=== PATIENT | female | born 2000 | race Caucasian/White ===

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

== ENCOUNTER → 2022-11-29 | Outpatient (REF) | payer BC | LOC: M LAB REF 10:11 | PROVIDERS: ATTEND Student in an Organized Health Care Education/Training Program | DX: J02.9 Acute pharyngitis, unspecified (principal) ==

== ENCOUNTER → 2023-02-21 | Outpatient (REF) | payer BC ==
[2023-02-21 15:32] LABS: BASO % 0.3 % (0.0-1.0); EOS # 0.1 10^3/uL (0.0-0.5); EOS % 0.4 % (0.0-3.0); HEMATOCRIT 42.6 % (36.0-47.0); HEMOGLOBIN 13.5 g/dl (12.0-15.5); LYMPH # 2.5 10^3/uL (1.5-5.0); LYMPH % 22.6 % (24.0-44.0); MEAN CORPUSCULAR HEMOGLOBIN 27.5 pg (27.0-33.0); MEAN CORPUSCULAR HGB CONC 31.7 g/dl (32.0-36.5); MEAN CORPUSCULAR VOLUME 86.8 fl (80.0-96.0); MONO # 0.7 10^3/uL (0.0-0.8); NEUTROPHILS # 7.9 10^3/uL (1.5-8.5); NEUTROPHILS % 70.4 % (36.0-66.0); PLATELET COUNT, AUTOMATED 312 10^3/uL (150-450); RED BLOOD COUNT 4.91 10^6/uL (4.00-5.40); WHITE BLOOD COUNT 11.2 10^3/uL (4.0-10.0)
[2023-02-21 16:06] LABS: ALBUMIN 3.7 G/DL (3.2-5.2); ALKALINE PHOSPHATASE 82 U/L (46-116); ALT/SGPT 26 U/L (7.0-40); AST/SGOT 11 U/L (<34); BILIRUBIN,TOTAL 0.2 MG/DL (0.3-1.2); BLOOD UREA NITROGEN 12 MG/DL (9-23); CALCIUM LEVEL 9.2 MG/DL (8.5-10.1); CARBON DIOXIDE LEVEL 27 MMOL/L (20-31); CHLORIDE LEVEL 104 MMOL/L (98-107); CREATININE FOR GFR 0.71 MG/DL (0.55-1.30); GLUCOSE, FASTING 84 MG/DL (60-100); IRON (FE) 30 UG/DL (50-170); PERCENT SATURATION 9.8 % (13.2-45.0); POTASSIUM SERUM 4.2 MMOL/L (3.5-5.1); SODIUM LEVEL 139 MMOL/L (136-145); TOTAL IRON BINDING CAPACITY 307 UG/DL (250-425); TOTAL PROTEIN 6.9 G/DL (5.7-8.2)
[2023-02-21 16:10] LABS: FREE T4 1.03 NG/DL (0.83-1.43); THYROID STIMULATING HORMONE 1.713 uIU/ML (0.48-4.17)
[2023-02-21 16:11] LABS: FOLATE 16.4 NG/ML (>5.4); TOTAL 25(OH) VITAMIN D 18.4 NG/ML (20.0-100.0); VITAMIN B12 LEVEL 408 PG/ML (211-911)
[2023-02-21 17:07] LABS: MONO REFLEX EBV COMP NEGATIVE (NEGATIVE)
[2023-02-23 14:09] LABS: EBV VIRAL CAPSID AG IgM <36.0 U/mL (0.0-35.9)
== END ==
LOC: M LABDRAWP 15:17
PROVIDERS: ATTEND Nurse Practitioner Adult Health
DX: R53.83 Other fatigue (principal)

== ENCOUNTER → 2023-03-21 | Outpatient (REF) | payer BC | LOC: M LAB REF 11:28 | PROVIDERS: ATTEND Nurse Practitioner Family | DX: R10.84 Generalized abdominal pain (principal); R11.2 Nausea with vomiting, unspecified ==

== ENCOUNTER 2023-05-15 18:43 | Emergency (ER) | payer BC ==
[~2023-05-15] VITALS: Ht 154.9 cm; Wt 86.4 kg
[2023-05-15] MEDS ORDERED: SPRI28TA (18:49)
[2023-05-15] MEDS ORDERED: NIRM1TAB (18:49)
[2023-05-15] MEDS ORDERED: FERR1TAB8 (18:49)
[2023-05-15] MEDS ORDERED: VENL75CA47 (18:49)
[2023-05-15] MEDS ORDERED: D-50CAP (18:49)
[2023-05-15 20:20] LABS: BASO % 0.1 % (0.0-1.0); EOS % 0.3 % (0.0-3.0); HEMATOCRIT 46.8 % (36.0-47.0); HEMOGLOBIN 15.5 g/dl (12.0-15.5); LYMPH # 2.1 10^3/uL (1.5-5.0); LYMPH % 29.4 % (24.0-44.0); MEAN CORPUSCULAR HGB CONC 33.1 g/dl (32.0-36.5); MEAN CORPUSCULAR VOLUME 84.6 fl (80.0-96.0); MONO # 0.5 10^3/uL (0.0-0.8); MONO % 6.8 % (2.0-8.0); NEUTROPHILS # 4.5 10^3/uL (1.5-8.5); NEUTROPHILS % 63.1 % (36.0-66.0); PLATELET COUNT, AUTOMATED 295 10^3/uL (150-450); RED BLOOD COUNT 5.53 10^6/uL (4.00-5.40); WHITE BLOOD COUNT 7.2 10^3/uL (4.0-10.0)
[2023-05-15] MEDS ORDERED: ONDANSETRON 4MG 2ML VIAL IV ONE (20:25)
[2023-05-15] MEDS ORDERED: NS 1,000 ML IV ONE (20:25)
[2023-05-15 20:42] LABS: ALBUMIN 4.2 G/DL (3.2-5.2); BILIRUBIN,DIRECT 0.1 MG/DL (<0.4); BILIRUBIN,TOTAL 0.3 MG/DL (0.3-1.2); TOTAL PROTEIN 8.1 G/DL (5.7-8.2)
[2023-05-15] MEDS ORDERED: ONDANSETRON 4MG ORAL DISINTEGRATING TAB PO ONE (21:25)
[2023-05-15] MEDS ORDERED: ONDA4TAB6 PO (21:27)
[2023-05-15 21:45] VITALS: BP 157/95; TEMP 97.4; O2SAT 100
== END 2023-05-15 21:47 | disposition home or self-care (01) ==
LOC: M ED 18:43
DX: U07.1 COVID-19 (principal); Z88.0 Allergy status to penicillin; Z88.1 Allergy status to other antibiotic agents; Z79.899 Other long term (current) drug therapy
CPT/HCPCS: 80047; 80076; 83690; 84702; 85025; 96361; 96374; 99284; J2405

== ENCOUNTER → 2023-06-16 | Outpatient (REF) | payer BC ==
[~2023-06-16] MED LIST: D-50CAP; FERR1TAB8; NIRM1TAB; ONDA4TAB6 PO; SPRI28TA; VENL75CA47
== END ==
LOC: M LAB REF 17:07
PROVIDERS: ATTEND Nurse Practitioner Adult Health
DX: R19.7 Diarrhea, unspecified (principal)

== ENCOUNTER → 2023-07-05 | Outpatient (REF) | payer BC ==
[2023-07-05 16:35] LABS: BASO % 0.3 % (0.0-1.0); EOS % 0.4 % (0.0-3.0); HEMATOCRIT 44.7 % (36.0-47.0); HEMOGLOBIN 14.6 g/dl (12.0-15.5); LYMPH # 2.7 10^3/uL (1.5-5.0); LYMPH % 24.2 % (24.0-44.0); MEAN CORPUSCULAR HEMOGLOBIN 28.7 pg (27.0-33.0); MEAN CORPUSCULAR HGB CONC 32.7 g/dl (32.0-36.5); MONO # 0.9 10^3/uL (0.0-0.8); MONO % 7.6 % (2.0-8.0); NEUTROPHILS # 7.6 10^3/uL (1.5-8.5); NEUTROPHILS % 67.2 % (36.0-66.0); PLATELET COUNT, AUTOMATED 361 10^3/uL (150-450); RED BLOOD COUNT 5.08 10^6/uL (4.00-5.40); WHITE BLOOD COUNT 11.2 10^3/uL (4.0-10.0)
[2023-07-05 16:59] LABS: PERCENT SATURATION 28.8 % (13.2-45.0)
== END ==
LOC: M LAB REF 15:27
PROVIDERS: ATTEND Nurse Practitioner Adult Health
DX: D50.9 Iron deficiency anemia, unspecified (principal)

== ENCOUNTER → 2024-04-25 | Outpatient (REF) | payer BC ==
[~2024-04-25] MED LIST changes: +ONDA-282 PO; -ONDA4TAB6 PO
[2024-04-25 10:57] LABS: BASO % 0.1 % (0.0-1.0); EOS # 0.1 10^3/uL (0.0-0.5); EOS % 0.8 % (0.0-3.0); HEMATOCRIT 44.1 % (36.0-47.0); HEMOGLOBIN 14.5 g/dl (12.0-15.5); LYMPH # 2.2 10^3/uL (1.5-5.0); LYMPH % 30.3 % (24.0-44.0); MEAN CORPUSCULAR HEMOGLOBIN 29.7 pg (27.0-33.0); MEAN CORPUSCULAR HGB CONC 32.9 g/dl (32.0-36.5); MEAN CORPUSCULAR VOLUME 90.4 fl (80.0-96.0); MONO # 0.5 10^3/uL (0.0-0.8); NEUTROPHILS # 4.4 10^3/uL (1.5-8.5); NEUTROPHILS % 61.7 % (36.0-66.0); PLATELET COUNT, AUTOMATED 269 10^3/uL (150-450); RED BLOOD COUNT 4.88 10^6/uL (4.00-5.40); WHITE BLOOD COUNT 7.1 10^3/uL (4.0-10.0)
[2024-04-25 11:20] LABS: IRON (FE) 69 UG/DL (50-170); PERCENT SATURATION 23.3 % (13.2-45.0); TOTAL IRON BINDING CAPACITY 296 UG/DL (250-425)
[2024-04-25 11:21] LABS: ALKALINE PHOSPHATASE 91 U/L (46-116); ALT/SGPT 21 U/L (7.0-40); AST/SGOT 15 U/L (<34); BILIRUBIN,TOTAL 0.7 MG/DL (0.3-1.2); BLOOD UREA NITROGEN 7 MG/DL (9-23); CALCIUM LEVEL 9.6 MG/DL (8.5-10.1); CARBON DIOXIDE LEVEL 28 MMOL/L (20-31); CHLORIDE LEVEL 105 MMOL/L (98-107); CREATININE FOR GFR 0.71 MG/DL (0.55-1.30); GLOMERULAR FILTRATION RATE > 60.0 (>60); GLUCOSE, FASTING 99 MG/DL (60-100); POTASSIUM SERUM 4.1 MMOL/L (3.5-5.1); SODIUM LEVEL 139 MMOL/L (136-145); TOTAL PROTEIN 7.3 G/DL (5.7-8.2)
[2024-04-25 11:23] LABS: FREE T4 1.24 NG/DL (0.89-1.76); THYROID STIMULATING HORMONE 1.097 uIU/ML (0.55-4.78)
[2024-04-25 11:46] LABS: HEMOGLOBIN A1c 4.8 % (4.0-6.0)
== END ==
LOC: M PLALAB 10:09
PROVIDERS: ATTEND Nurse Practitioner Adult Health
DX: N83.201 Unspecified ovarian cyst, right side (principal); F41.1 Generalized anxiety disorder; D50.9 Iron deficiency anemia, unspecified

== ENCOUNTER → 2024-05-11 | Outpatient (REF) | payer BC ==
[2024-05-11 18:25] LABS: Trichomonas vaginalis (AMP) NOT DETECTED (NEGATIVE)
[2024-05-11 18:48] LABS: GC DNA AMPLIFICATION NEGATIVE (NEGATIVE)
== END ==
LOC: M PLALAB 14:56
PROVIDERS: ATTEND Advanced Practice Midwife
DX: Z12.4 Encounter for screening for malignant neoplasm of cervix (principal); Z11.3 Encounter for screening for infections with a predominantly sexual mode of transmission; R87.615 Unsatisfactory cytologic smear of cervix
CPT/HCPCS: 87661; 87810; 87850; G0123

== ENCOUNTER → 2024-05-23 | Outpatient (CLI) | payer BC | LOC: M RAD 14:29 | PROVIDERS: ATTEND Nurse Practitioner Adult Health | DX: N83.201 Unspecified ovarian cyst, right side (principal) ==

== ENCOUNTER → 2024-09-20 | Outpatient (REF) | payer BC ==
[2024-09-20 18:03] LABS: HEMATOCRIT 39.6 % (36.0-47.0); HEMOGLOBIN 13.2 g/dl (12.0-15.5); MEAN CORPUSCULAR HEMOGLOBIN 29.3 pg (27.0-33.0); MEAN CORPUSCULAR HGB CONC 33.3 g/dl (32.0-36.5); PLATELET COUNT, AUTOMATED 223 10^3/uL (150-450); WHITE BLOOD COUNT 9.4 10^3/uL (4.0-10.0)
[2024-09-20 19:26] LABS: HIV 1&2 SCREEN NEGATIVE (NEGATIVE)
[2024-09-20 19:34] LABS: HEPATITIS C VIRUS ABY INDEX < 0.02 INDEX (<0.8)
== END ==
LOC: M LABDRAWP 17:06
PROVIDERS: ATTEND Advanced Practice Midwife
DX: Z34.00 Encounter for supervision of normal first pregnancy, unspecified trimester (principal)

== ENCOUNTER → 2024-10-17 | Outpatient (REF) | payer BC ==
[2024-10-17 17:17] LABS: GC DNA AMPLIFICATION NEGATIVE (NEGATIVE)
== END ==
LOC: M SFHCWAGY 14:17
PROVIDERS: ATTEND Advanced Practice Midwife
DX: Z34.01 Encounter for supervision of normal first pregnancy, first trimester (principal)

== ENCOUNTER → 2024-10-17 | Outpatient (CLI) | payer BC | LOC: M WHC 11:51 | PROVIDERS: ATTEND Nurse Practitioner Family | DX: Z34.80 Encounter for supervision of other normal pregnancy, unspecified trimester (principal) ==

== ENCOUNTER → 2024-11-30 | Outpatient (CLI) | payer BC | LOC: M WHC 14:18 | PROVIDERS: ATTEND Nurse Practitioner Family | DX: Z34.80 Encounter for supervision of other normal pregnancy, unspecified trimester (principal); Z3A.20 20 weeks gestation of pregnancy ==

== ENCOUNTER → 2024-12-27 | Outpatient (CLI) | payer BC | LOC: M WHC 15:07 | PROVIDERS: ATTEND Nurse Practitioner Family | DX: Z34.82 Encounter for supervision of other normal pregnancy, second trimester (principal) ==

== ENCOUNTER → 2025-01-10 | Outpatient (CLI) | payer BC ==
[2025-01-10 17:14] LABS: HEMATOCRIT 36.7 % (36.0-47.0); MEAN CORPUSCULAR HEMOGLOBIN 29.6 pg (27.0-33.0); MEAN CORPUSCULAR HGB CONC 32.7 g/dl (32.0-36.5); MEAN CORPUSCULAR VOLUME 90.6 fl (80.0-96.0); PLATELET COUNT, AUTOMATED 209 10^3/uL (150-450); RED BLOOD COUNT 4.05 10^6/uL (4.00-5.40); WHITE BLOOD COUNT 8.5 10^3/uL (4.0-10.0)
[2025-01-10 17:44] LABS: GLUCOSE CHALLENGE TEST 1 HOUR 149 MG/DL (LESS THAN 140)
[2025-01-10 18:17] LABS: HIV 1&2 SCREEN NEGATIVE (NEGATIVE)
[2025-01-10 18:25] LABS: HEPATITIS C VIRUS ABY INDEX 0.08 INDEX (<0.8); Trichomonas vaginalis (AMP) NOT DETECTED (NEGATIVE)
[2025-01-10 18:48] LABS: GC DNA AMPLIFICATION NEGATIVE (NEGATIVE)
== END ==
LOC: M PLALAB 13:53
PROVIDERS: ATTEND Nurse Practitioner Family
DX: Z34.02 Encounter for supervision of normal first pregnancy, second trimester (principal)

== ENCOUNTER → 2025-01-17 | Outpatient (CLI) | payer BC | LOC: M LAB 07:11 | PROVIDERS: ATTEND Nurse Practitioner Family | DX: R73.02 Impaired glucose tolerance (oral) (principal) ==

== ENCOUNTER → 2025-03-12 | Outpatient (CLI) | payer BC ==
[2025-03-12 13:17] LABS: ALT/SGPT 15 U/L (7.0-40); AST/SGOT 16 U/L (<34); CALCIUM LEVEL 9.6 MG/DL (8.5-10.1); CARBON DIOXIDE LEVEL 25 MMOL/L (20-31); CHLORIDE LEVEL 105 MMOL/L (98-107); CREATININE FOR GFR 0.48 MG/DL (0.55-1.30); GLOMERULAR FILTRATION RATE > 90.0 (>60); PLATELET COUNT, AUTOMATED 241 10^3/uL (150-450); POTASSIUM SERUM 4.6 MMOL/L (3.5-5.1); SODIUM LEVEL 140 MMOL/L (136-145)
[2025-03-12 13:41] LABS: TOTAL PROTEIN,RANDOM URINE 19.2 MG/DL (0.0-14.0)
== END ==
LOC: M PLALAB 10:14
PROVIDERS: ATTEND Obstetrics & Gynecology
DX: O16.9 Unspecified maternal hypertension, unspecified trimester (principal); Z3A.00 Weeks of gestation of pregnancy not specified

== ENCOUNTER → 2025-03-29 | Outpatient (REF) | payer BC | LOC: M SFHCWAGY 12:48 | PROVIDERS: ATTEND Obstetrics & Gynecology | DX: Z34.80 Encounter for supervision of other normal pregnancy, unspecified trimester (principal); Z36.85 Encounter for antenatal screening for Streptococcus B ==

== ENCOUNTER 2025-04-22 10:36 | Inpatient (IN) | payer BC ==
[~2025-04-22] VITALS: Ht 154.9 cm; Wt 96.2 kg
[2025-04-22] VITALS (8 sets, daily range): BP systolic 119–155; BP diastolic 66–88
[2025-04-22] MEDS ORDERED: PRENTAB9 PO (10:49)
[2025-04-22] MEDS ORDERED: HOME MED LIST COMPLETE! XX SCH (10:50)
[2025-04-22] MEDS ORDERED: OXYTOCIN DRIP 30 UNITS in IV 1 EA IV PRN (11:20)
[2025-04-22] MEDS ORDERED: METHYLERGONOVINE MALEATE 0.2 MG/ML 1 ML VIAL IM PRN (11:20)
[2025-04-22] MEDS ORDERED: CARBOPROST TROMETHAMINE 250 MCG/ML AMP IM PRN (11:20)
[2025-04-22] MEDS ORDERED: OXYTOCIN INJ 10UNITS/ML 1ML VIAL IM PRN (11:20)
[2025-04-22] MEDS ORDERED: TRANEXAMIC ACID INJection 1,000 MG in NS 100 ML IV PRN (11:20)
[2025-04-22] MEDS: miSOPROStol 50 MCG 1/2 TABLET PO SCH (12:54)
[2025-04-22 13:01] LABS: PLATELET COUNT, AUTOMATED 218 10^3/uL (150-450)
[2025-04-22 13:39] LABS: HIV 1&2 SCREEN NEGATIVE (NEGATIVE)
[2025-04-22 13:47] LABS: HEPATITIS C VIRUS ABY INDEX < 0.02 INDEX (<0.8)
[2025-04-22] MEDS: CALCIUM CARBONATE 500 MG CHEW U/D PO PRN (22:37)
[2025-04-23] VITALS (47 sets, daily range): BP systolic 107–180; BP diastolic 56–85; O2SAT 99
[2025-04-23] MEDS: LACTATED RINGER'S 1000 ML IV STA (00:59)
[2025-04-23] MEDS ORDERED: ONDANSETRON 4MG 2ML VIAL IV PRN ×2 (02:10→11:50)
[2025-04-23] MEDS ORDERED: NALOXONE INJ 0.4 MG/1 ML VIAL IV PRN (02:10)
[2025-04-23] MEDS ORDERED: diphenhydrAMINE 50 MG/ML VIAL IV PRN (02:10)
[2025-04-23] MEDS ORDERED: LR 500 ML IV PRN (02:10)
[2025-04-23] MEDS ORDERED: EPIDURAL/PCA KEYS XX PRN (02:10)
[2025-04-23] MEDS: FENTANYL/ROPIVACAINE/NACL BAG 100 ML EPIDURAL SCH (02:41)
[2025-04-23] MEDS: LR 1,000 ML IV SCH (03:50)
[2025-04-23] MEDS: OXYTOCIN DRIP 30 UNITS in IV 1 EA IV SCH (03:50)
[2025-04-23] MEDS: LIDOCAINE 1% MDV 20 ML VIAL INFIL PRN (11:21)
[2025-04-23 11:31] LABS: CORD GAS ABE A -14.0; CORD GAS ABE V -3.8; CORD GAS HCO3 A 15.5 MMOL/L; CORD GAS HCO3 V 23.2 MMOL/L; CORD GAS O2 SAT A 70.1 %; CORD GAS O2 SAT V 60.2 %; CORD GAS PCO2 A 49.6 mmHg; CORD GAS PCO2 V 48.7 mmHg; CORD GAS PH A 7.113 UNITS; CORD GAS PH V 7.295 UNITS; CORD GAS PO2 A 39.4 mmHg; CORD GAS PO2 V 27.5 mmHg; CORD GAS SBC A 13.5 MMOL/L; CORD GAS SBC V 20.4 MMOL/L; CORD GAS TCO2 A 17.0 MMOL/L; CORD GAS TCO2 V 24.7 MMOL/L
[2025-04-23] MEDS ORDERED: ACETAMINOPHEN 325 MG TAB PO PRN (11:50)
[2025-04-23] MEDS ORDERED: METHYLERGONOVINE MALEATE 0.2 MG TAB PO PRN (11:50)
[2025-04-23] MEDS ORDERED: IBUPROFEN 600 MG TAB PO PRN (11:50)
[2025-04-23] MEDS ORDERED: RHOGAM 300MCG (1500IU) INJ IM SCH (11:50)
[2025-04-23] MEDS: ACETAMINOPHEN 500 MG TAB PO PRN (14:08)
[2025-04-23] MEDS: DIBUCAINE 1% OINTMENT 30 GM TOP PRN (16:00)
[2025-04-23] MEDS: IBUPROFEN 800 MG TAB PO PRN (19:24)
[2025-04-24 06:00] VITALS: BP 122/62; O2SAT 97
[2025-04-24] MEDS: PRENATAL VITAMINS CHEWABLE TABLET PO SCH (09:01)
[2025-04-24] MEDS: DOCUSATE SODIUM 100 MG CAPSULE PO PRN (09:01)
[2025-04-24 18:00] VITALS: BP 119/79; O2SAT 98
[2025-04-25 06:00] VITALS: BP 129/69; O2SAT 98
[2025-04-25] MEDS ORDERED: MEASLES,MUMPS,RUBELLA VACCINE INJ (MMR-II) SC.IMMUN ONE (09:00)
[2025-04-25] MEDS ORDERED: ACET-683 PO (09:30)
[2025-04-25] MEDS ORDERED: IBUP80TA PO (09:31)
== END 2025-04-25 11:00 | disposition home or self-care (01) | DRG 560 ==
LOC: M LDI 10:36 → M OBS 04-23 16:29
PROVIDERS: ADMIT Advanced Practice Midwife; ATTEND Advanced Practice Midwife
PROC: 3E033VJ Introduction of Other Hormone into Peripheral Vein, Percutaneous Approach (ICD-10-PCS; 2025-04-22)
PROC: 3E0DXGC Introduction of Other Therapeutic Substance into Mouth and Pharynx, External Approach (ICD-10-PCS; 2025-04-22)
PROC: 10E0XZZ Delivery of Products of Conception, External Approach (ICD-10-PCS; principal; 2025-04-23)
PROC: 10907ZC Drainage of Amniotic Fluid, Therapeutic from Products of Conception, Via Natural or Artificial Opening (ICD-10-PCS; 2025-04-23)
DX: O48.0 Post-term pregnancy (principal); O70.1 Second degree perineal laceration during delivery; Z37.0 Single live birth; Z3A.40 40 weeks gestation of pregnancy

== ENCOUNTER → 2025-07-09 | Outpatient (REF) | payer BC ==
[~2025-07-09] MED LIST changes: +ACET-683 PO; +IBUP80TA PO; +PRENTAB9 PO
== END ==
LOC: M PLALAB 09:36
PROVIDERS: ATTEND Physician Assistant
DX: Z12.4 Encounter for screening for malignant neoplasm of cervix (principal)

== ENCOUNTER → 2025-07-09 | Outpatient (RCR) | LOC: M EMPSKH 06-23 10:38 | PROVIDERS: ATTEND Family Medicine | DX: Z20.828 Contact with and (suspected) exposure to other viral communicable diseases (principal) ==